=== PATIENT | male | born 1960 | race Caucasian/White ===

== ENCOUNTER 2018-02-17 06:47 | Day surgery (SDC) | payer BC ==
[~2018-02-17 06:47] MED LIST: Acetaminophen TAB* 325 MG PO PRN; Buffered Lidocaine 0.9% SYRIN* 5 ML/SYR SYRINGE INTRADERM ONE
[2018-02-17] MEDS ORDERED: Midazolam* 1 MG/ML 5 ML VIAL (5 MG) ONE (07:56)
[2018-02-17] MEDS ORDERED: fentaNYL* 50 MCG/ML 2 ML VIAL (100 MCG VIAL) ONE (08:22)
[2018-02-17 08:56] VITALS: BP 126/84
[2018-02-17] MEDS ORDERED: acetaZOLAMIDE TAB* 250 MG ONE (11:16)
[2018-02-17] MEDS ORDERED: Cyclopentolate 1% OPTH.SOL* 2 ML BTL ONE (11:16)
[2018-02-17] MEDS ORDERED: Lidocaine 1%* 5 ML VIAL ONE (11:16)
[2018-02-17] MEDS ORDERED: Neomycin/Polymy/Dex OPHTH.OIN* 3.5 GM ONE (11:16)
[2018-02-17] MEDS ORDERED: Tropicamide 1% OPTH.SOL* BTL ONE (11:16)
[2018-02-17] MEDS ORDERED: Ketorolac 0.5% OPHTH (NF) 0.5 % 5 ML BTL ONE (11:16)
[2018-02-17] MEDS ORDERED: Povidone Iodine 5% OPTH* 30 ML BTL ONE (11:16)
[2018-02-17] MEDS ORDERED: Phenylephrine 2.5% OPTH.SOL* 2 ML BTL ONE (11:16)
[2018-02-17] MEDS ORDERED: Tetracaine 0.5% OPTH.SOL 4 ML* 1 DROP BTL ONE (11:16)
--- NOTE | 2018-02-17 12:40 | OP ---
DATE OF OPERATION: 02/17/18 - [facility] DATE OF : 64 SURGEON: Wang Lunsford MD ANESTHESIA: Monitored anesthesia care. PRE-OP DIAGNOSIS: Cataract, left eye. POST-OP DIAGNOSIS: Cataract, left eye. OPERATIVE PROCEDURE: Extracapsular cataract extraction of the left eye with intraocular lens implant. IMPLANTS: SN60WF 21.0 diopter lens to the left eye. COMPLICATIONS: None. DESCRIPTION OF PROCEDURE: The patient was given phenylephrine 2.5% and cyclopentolate 1% eye drops to the operative eye in the preoperative area. The patient was taken to the operating room where a time-out was taken to identify the correct patient, site and side of surgery, and correct lens selection. The patient's left eye was prepped and draped in the usual sterile fashion with 5% Betadine. A second time-out was taken to verify the correct patient, site and side of surgery, and correct lens selection. A lid speculum was placed to the left eye. A 1-mm paracentesis blade was used to make a clear corneal incision in the inferotemporal position. Preservative-free 1% lidocaine was injected into the anterior chamber. DisCoVisc was then injected into the anterior chamber. A 2.75 mm keratome blade was used to make a triplanar incision at the superotemporal position. A cystotome initiated a capsulorrhexis which was completed with Utrata forceps in a continuous and curvilinear manner. Hydrodissection of the lens was performed with BSS on a cannula. The lens could be spun in the capsular bag. The phacoemulsification handpiece was used with a [id number] technique to remove the nucleus in its entirety with 7.49 CDE. The I/A handpiece then removed the residual cortical lens material. DisCoVisc was injected to inflate the capsular bag. The planned SN60WF 21.0 diopter lens was injected into the capsular bag. The residual DisCoVisc was removed from the eye with the I/A handpiece. 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 The corneal incisions were hydrated and no leaks occurred at physiologic pressure around 20 mmHg per palpation. The lid speculum was removed and drapes removed. Maxitrol ointment was placed to the surface of the operative eye. An adhesive patch and shield was then placed on the operative eye. The patient was taken to the postoperative area in stable condition. [id number]/[facility] #: [id number] [facility] NETWORKNoel
== END 2018-02-17 09:01 | disposition home or self-care (01) ==
LOC: OREAST 06:47
PROVIDERS: ATTEND Student in an Organized Health Care Education/Training Program
DX: H25.12 Age-related nuclear cataract, left eye (principal); H43.811 Vitreous degeneration, right eye; H33.22 Serous retinal detachment, left eye; I10 Essential (primary) hypertension; E78.00 Pure hypercholesterolemia, unspecified; J30.89 Other allergic rhinitis; J44.9 Chronic obstructive pulmonary disease, unspecified; N40.0 Benign prostatic hyperplasia without lower urinary tract symptoms; G47.33 Obstructive sleep apnea (adult) (pediatric); K21.9 Gastro-esophageal reflux disease without esophagitis; D72.829 Elevated white blood cell count, unspecified; F41.9 Anxiety disorder, unspecified
CPT/HCPCS: A9270-GY; J2250; J3010; V2632

== ENCOUNTER 2018-02-26 14:12 | Emergency (ER) | payer BC ==
--- OUTSIDE RECORDS SUMMARY | 2018-02-26 14:34 | XMS REPORT ---
:1960 External Reference #:[id number] Author Organization [facility] [place] Address [address] [place] [id number] Phone [phone] Care Team Providers Name Role Phone Grabiel Conroy M.D. Primary Care Physician Unavailable Payers Type Date Identification Numbers Payment Provider Subscriber Commercial Policy Number: [id number] BS CNY Bladeus Ross Valerio PayID: [id number] [address] [address] [place] [address] Problems Date Description Provider Status Onset: Essential hypertension Active Onset: Hypercholesterolemia Active Onset: Multiple environmental allergies Active Onset: Benign localized hyperplasia of Active prostate Onset: Fatigue Active Onset: Mild chronic obstructive pulmonary Active disease Onset: 04/04/2017 Crystalline deposits in vitreous Wang Lunsford M.D. Active Onset: 04/04/2017 Nuclear senile cataract Wang Lunsford M.D. Active Onset: 04/04/2017 Central serous chorioretinopathy Wang Lunsford M.D. Active Onset: 02/05/2018 Vitreous degeneration Wang Lunsford M.D. Active Onset: 10/15/2017 Serous retinal detachment Wang Lunsford M.D. Active Family History Date Family Member(s) Problem(s) Comments General No Current Problems Father Heart Disease Father Pacemaker Father Hypercholesterolemia Father Hypertension Father Enlarged Prostate Father Gout Father Glaucoma Father Cataract Mother Breast Cancer Mother Ovarian Cancer Mother Diabetes Mellitus Type 2 Mother Heart Disease Mother Parkinson's Disease Mother Cataract Social History Type Date Description Comments Marital Status Single Occupation [employer] Work Status Full-Time Employment ETOH Use Occasionally consumes alcohol Smoking Patient has never smoked Recreational Drug Use Denies Drug Use Daily Caffeine Consumes on average 1 cup of regular coffee per day Allergies, Adverse Reactions, Alerts Date Description Reaction Status Severity Comments 04/04/2017 Penicillin active 04/04/2017 Sulfa Antibiotics active 02/05/2018 Bee Stings active Medications Medication Date Status Form Strength Qnty SIG Indications Ordering Provider Ciprofloxacin HCL 02/05 Active Solution 0.3% 10uni instill Wang /2017 ts one drop Zablocki, in the M.D. left eye three times a day, start the day before surgery Ketorolac 02/05 Active Solution 0.5% 10ml use one Wang Tromethamine /2017 drop in Zablocki, the left M.D. eye three times a day, start the day before surgery Prednisolone 02/05 Active Suspension 1% 15ml 1 drops Wang Acetate /2017 left eye Zablocki, three M.D. times a day. taper as directed Timolol Maleate 02/04 Active Solution 0.5% 15ml use 1 Wang (Daily) drop in Zablocki, your left M.D. eye twice daily Spiriva Active Capsules 18mcg Tamra, Handihaler /0000 Lucinda F.N.P Tamsulosin HCL Active Capsules 0.4mg Take 1 Unknown /0000 Capsule By Mouth Daily. Pravastatin 00/00 Active Tablets 10mg Take 1 Unknown Sodium /0000 Tablet Every Day Nisoldipine ER 00 Active Tablets ER 17mg Take One Unknown /0000 24HR Tablet By Mouth One Time Daily Montelukast 00/00 Active Tablets 10mg Take 1 Unknown Sodium /0000 Tablet By Mouth Every Day Lisinopril 00/00 Active Tablets 5mg Take 1 Unknown /0000 Tablet Every Day Bupropion HCL ER 0000 Active Tablets ER 150mg Take Unknown (XL) /0000 24HR Three Tablets By Mouth Daily Viagra 00/00 Active Tablets 50mg Unknown /0000 Levocetirizine 00/00 Active Tablets 5mg Take 1 Unknown Dihydrochloride /0000 Tablet Every Day Results Description No Information Procedures Date CPT Code Description Status 01/16/2018 60792 Est Patient Comprehensive Exam Completed 10/15/2017 94410 Scanning Computerized Opthalmic Diagnostic Posterior Completed Seg Retina 10/15/2017 28846 Est Patient Comprehensive Exam Completed 04/04/2017 89438 Scanning Computerized Opthalmic Diagnostic Posterior Completed Seg Retina 04/04/2017 28819 New Patient Comprehensive Exam Completed Plan of Care Future Appointment(s):03/04/2018 8:30 am - Wang Lunsford M.D. at [facility], 02/18/2018 8:30 am - Wang Lunsford M.D. at [facility] , 02/17/2018 1:00 pm - Wang Lunsford M.D. at [facility], 2017 - Wang Lunsford M.D.H25.12 Age-related nuclear cataract, left eyeComments:Smoking can increase the risk of developing or worsening any eye related disease, as well as affect your overall health. If you are a smoker, we strongly recommend that you quit.If you are not a smoker, we strongly recommend that you do not start. Dense cataract in the left eye.Follow up:For surgery. Please keep post op appointments as scheduled.H43.811 Vitreous degeneration, right eyeH33.22 Serous retinal detachment, left eyeH25.11 Age- related nuclear cataract, right eye
--- OUTSIDE RECORDS SUMMARY | 2018-02-26 14:34 | XMS REPORT ---
:1960 External Reference #:[id number] Author Organization [facility] Address [address] [place] [id number] Phone [phone] Care Team Providers Name Role Phone Grabiel Conroy M.D. Primary Care Physician Unavailable Payers Type Date Identification Numbers Payment Provider Subscriber Commercial Policy Number: [id number] BS CNY Bladeus Ross Valerio PayID: [id number] [address] [address] [place] [address] Problems Date Description Provider Status Onset: Essential [...] Date Description Comments Marital Status Single Occupation [employer] Work Status Full-Time Employment ETOH Use Occasionally [...] Tablet By Mouth One Time Daily Montelukast 00 Active Tablets 10mg Take 1 Unknown Sodium /0000 Tablet By Mouth Every Day Lisinopril 00/00 Active Tablets 5mg Take 1 Unknown /0000 Tablet Every Day Bupropion HCL ER 0000 Active Tablets ER 150mg Take Unknown (XL) /0000 24HR Three Tablets By Mouth Daily Viagra 00 Active Tablets 50mg Unknown /0000 Levocetirizine 00/00 Active Tablets 5mg Take 1 Unknown Dihydrochloride /0000 Tablet Every Day Results Description No Information Procedures Date CPT Code Description Status 02/05/2018 16055 Ophthalmic Biometry Completed 02/05/2018 54026 Ophthalmic Biometry Completed 02/05/2018 82808 Scanning Computerized Opthalmic Diagnostic Posterior Completed Seg Retina 01/16/2018 92503 Est Patient Comprehensive Exam Completed 10/15/2017 95789 Scanning Computerized Opthalmic Diagnostic Posterior Completed Seg Retina 10/15/2017 31204 Est Patient Comprehensive Exam Completed 04/04/2017 62341 Scanning Computerized Opthalmic Diagnostic Posterior Completed Seg Retina 04/04/2017 09491 New Patient Comprehensive Exam Completed Encounters Type Date Location Provider CPT E/M Dx Office Visit 02/05/2018 8:30a [facility], Wang Lunsford, [address] H25.12 Kathy H43.811 H33.22 H25.11 Plan of Care Future Appointment(s):03/04/2018 8:30 am - Wang Lunsford M.D. at [facility], 02/18/2018 - Wang Lunsford M.D.Z96.1 Presence of intraocular lensComments:Smoking can increase the risk of developing or worsening any eye related disease, as well as affect your overall health. If you are a smoker, we strongly recommend that you quit.If you are not a smoker, we strongly recommend that you do not start. The artifical lens implant in your left eye appears to be stable. Since this is the first day after surgery, your left eye is still dilated and the vision will still be slightly blurry. The dilation will go down over the next day or two. Continue taking your eye drops as directed on the surgical calendar. If you have any questions, please call our office.Follow up:As scheduled You can expect to have your eyes dilated at your next visit. If Dr. Lunsford orders any additional testing, it may require extra time. We recommend that you bring sunglasses, as dilation drops often make you light sensitive until they wear off. We always recommend you bring someone to drive you home if you are uncomfortable driving with your eyes dilated. If you have any questions before your next visit, feel free to call our office at .
[2018-02-26] MEDS ORDERED: Albuterol/Ipratropium NEB.SOL* Albuterol 2.5 MG/Ipratropium 0.5 MG 3 ML INH ONE (15:24)
[2018-02-26] MEDS ORDERED: NS 0.9% 1000 ML* 1,000 ML IV SCH (15:30)
[2018-02-26 16:16] LABS: ABS Basophils 0.1 10^3/ul (0-0.2); ABS Eosinophils 0.1 10^3/ul (0-0.6); ABS Lymphocytes 3.4 10^3/ul (1.0-4.8); ABS Monocytes 1.1 10^3/ul (0-0.8); ABS Neutrophils 11.3 10^3/ul (1.5-7.7); ABS Nucleated RBC 0 10^3/ul; Eosinophil % 0.4 % (0-6); Hematocrit 46 % (42-52); Hemoglobin 16.1 g/dl (14.0-18.0); Lymphocyte % 21.6 % (25-47); Mean Corpuscular HGB Conc 35 g/dl (31-36); Mean Corpuscular Hemoglobin 31 pg (27-31); Mean Corpuscular Volume 89 fL (80-94); Mean Platelet Volume 8.2 um3 (7.4-10.4); Nucleated Red Blood Cells % 0.1; Platelet Count 232 10^3/ul (150-450); Red Blood Count 5.18 10^6/ul (4.00-5.40); Red Cell Distribution Width 13 % (10.5-15); White Blood Count 15.9 10^3/ul (3.5-10.8)
[2018-02-26 16:28] LABS: INR 0.95 (0.77-1.02)
[2018-02-26 16:57] LABS: EGFR Non-African American 66.7 (>60)
--- NOTE | 2018-02-26 17:11 | RAD ---
INDICATION: Shortness of breath. COMPARISON: Comparison is made with a prior chest x-ray study from November 12, 2013. TECHNIQUE: A portable view of the chest was obtained. FINDINGS: Cardiac and mediastinal contours appear to be within normal limits. The lungs are clear. No pleural effusion is seen. IMPRESSION: NO EVIDENCE FOR ACUTE DISEASE.
[2018-02-26] MEDS ORDERED: Azithromycin TAB* 250 MG PO ONE (17:52)
[2018-02-26 18:16] VITALS: BP 148/94
--- NOTE | 2018-02-26 18:46 | ED ---
Katie Nj Tenzin, scribed for Yaw Carrillo MD on 02/26/18 at 1524 . Shortness of Breath - HPI Summary HPI Summary: Pt is a 57 years old male with PMHx of COPD and asthma presenting to the ED complaining of SOB with deep breaths today. His doctor recommended him to visit the ED today. Pt notes that "I really have to concentrate when I take deep breaths" and the pain radiating to the periumbilical is sharp as if a metal piece is piercing through it. Pt is also complaining of general malaise, little wheezes with coughs for over a week. He reports that his coughs were productive with yellow sputum last week but currently with no sputum. Pt denies fever or chills. No aggravating or alleviating factors were noted. He currently has a CPAP machine at home. He reports that he used his inhaler this morning at 10: 00. Pt has prostate cancer and he can't be on any oral steroids. - History of Current Complaint Chief Complaint: EDWeakness Time Seen by Provider: 02/26/18 15:03 Hx Obtained From: Patient Onset/Duration: Still Present Associated Signs & Symptoms: Cough (Nonproductive) - cough was productive with yellow sputum last week., Wheezing - Allergy/Home Medications Allergies/Adverse Reactions: Allergies Allergy/AdvReac Type Severity Reaction Status Date / Time bee venom protein (honey bee) Allergy Severe Hives Verified 02/17/18 07:16 Penicillins Allergy Severe Hives Verified 02/17/18 07:16 Sulfa (Sulfonamide Allergy Severe See Comment Verified 02/17/18 07:16 Antibiotics) Home Medications: Home Medications Aspirin EC TAB* [Ecotrin EC Low Dose 81 MG*] 81 mg PO DAILY 02/26/18 [History Confirmed 02/26/18] B1/B2/Niacin/B12/Protease [B-Complex/B-12] 1 tab PO DAILY 02/26/18 [History Confirmed 02/26/18] Bupropion XL* [Wellbutrin XL *] 450 mg PO DAILY 02/26/18 [History Confirmed ] Chlorhexidine MOUTHWASH 0.12%* [Peridex Mouth Wash 0.12%*] 15 ml SWISH SPIT BID 02/26/18 [History Confirmed 02/26/18] EPINEPHrine [Epipen 2-Tim] 0.3 mg IM ONCE PRN 02/26/18 [History Confirmed ] Mv-Mins/Folic Acid/Guarana/Caf [One Daily Tablet] 1 tab PO DAILY 02/26/18 [ History Confirmed 02/26/18] Rizatriptan ODT (NF) [Maxalt-ANIMAL BEHAVIORIST (NF)] 10 mg PO DAILY PRN 02/26/18 [History Confirmed 02/26/18] Tamsulosin CAP* [Flomax CAP*] 0.4 mg PO DAILY 02/26/18 [History Confirmed ] PMH/Surg Hx/FS Hx/Imm Hx Endocrine/Hematology History: Denies: Hx Diabetes, Hx Anemia - chronic high WBC r/t sleep apnea- sees Dr. Douglas yearly Cardiovascular History: Reports: Hx Hypertension, Other Cardiovascular Problems/ Disorders - high cholesterol Respiratory History: Reports: Hx Asthma - POSSIBLE ASTHMA, Hx Sleep Apnea GI History: Reports: Hx Gastroesophageal Reflux Disease History: Reports: Other Problems/Disorders - borderline PSA- being monitorted Denies: Hx Renal Disease Sensory History: Reports: Hx Cataracts - left, Hx Contacts or Glasses - glasses Denies: Hx Hearing Aid Opthamlomology History: Reports: Hx Cataracts - left, Hx Contacts or Glasses - glasses Neurological History: Reports: Hx Migraine Psychiatric History: Reports: Hx Anxiety - Cancer History Cancer Type, Location and Year: PROSTATE Hx Chemotherapy: No - Surgical History Surgery Procedure, Year, and Place: radical retina reattachment 10/22/2017 Hx Anesthesia Reactions: Yes - when extubated, choked for 5 minutes, has sleep apnea Infectious Disease History: No Infectious Disease History: Denies: Traveled Outside the [place] in Last 30 Days - Family History Known Family History: Positive: Other - Social History Alcohol Use: None Substance Use Type: Reports: None Smoking Status (MU): Never Smoked Tobacco Review of Systems Negative: Fever, Chills Positive: Shortness Of Breath, Cough Positive: Abdominal Pain - with deep breaths All Other Systems Reviewed And Are Negative: Yes Physical Exam - Summary Physical Exam Summary: General: well-appearing, no pain distress Skin: warm, color reflects adequate perfusion, dry Head: normal Eyes: EOMI, BERNABE ENT: normal Neck: supple, nontender Respiratory: Rhonchi bilaterally, breath sounds present Cardiovascular: RRR Abdomen: soft, nontender Bowel: present Musculoskeletal: normal, strength/ROM intact Neurological: sensory/motor intact, A&O x3 Psychological: affect/mood appropriate Triage Information Reviewed: Yes Vital Signs On Initial Exam: Initial Vitals Temp Pulse Resp BP Pulse Ox 97.0 F 79 14 165/95 96 02/26/18 14:15 02/26/18 14:15 02/26/18 14:15 02/26/18 14:15 02/26/18 14:15 Vital Signs Reviewed: Yes Diagnostics - Vital Signs Vital Signs Temp Pulse Resp BP Pulse Ox 02/26/18 14:15 97.0 F 79 14 165/95 96 - Laboratory Lab Results: Lab Results 02/26/18 02/26/18 02/26/18 Range/Units 15:59 15:59 15:59 WBC 15.9 H (3.5-10.8) 10^3/ul RBC 5.18 (4.00-5.40) 10^6/ul Hgb 16.1 (14.0-18.0) g/dl Hct 46 (42-52) % MCV 89 (80-94) fL MCH 31 (27-31) pg MCHC 35 (31-36) g/dl RDW 13 (10.5-15) % Plt Count 232 (150-450) 10^3/ul MPV 8.2 (7.4-10.4) um3 Neut % (Auto) 70.9 (38-83) % Lymph % (Auto) 21.6 L (25-47) % Wood % (Auto) 6.7 (0-7) % Eos % (Auto) 0.4 (0-6) % Baso % (Auto) 0.4 (0-2) % Absolute Neuts (auto) 11.3 H (1.5-7.7) 10^3/ul Absolute Lymphs (auto) 3.4 (1.0-4.8) 10^3/ul Absolute Monos (auto) 1.1 H (0-0.8) 10^3/ul Absolute Eos (auto) 0.1 (0-0.6) 10^3/ul Absolute Basos (auto) 0.1 (0-0.2) 10^3/ul Absolute Nucleated RBC 0 10^3/ul Nucleated RBC % 0.1 INR (Anticoag Therapy) 0.95 (0.77-1.02) APTT 33.5 (26.0-36.3) seconds D-Dimer, Quantitative < 200 (Less Than 230) ng/mL Sodium 137 L (139-145) mmol/L Potassium 3.5 (3.5-5.0) mmol/L Chloride 101 (101-111) mmol/L Carbon Dioxide 24 (22-32) mmol/L Anion Gap 12 H (2-11) mmol/L BUN 18 (6-24) mg/dL Creatinine 1.14 (0.67-1.17) mg/dL Est GFR ( Amer) 85.8 (>60) Est GFR (Non-Af Amer) 66.7 (>60) BUN/Creatinine Ratio 15.8 (8-20) Glucose 111 H (70-100) mg/dL Lactic Acid (0.5-2.0) mmol/L Calcium 9.9 (8.6-10.3) mg/dL Magnesium 2.0 (1.9-2.7) mg/dL Total Bilirubin 0.50 (0.2-1.0) mg/dL AST 23 (13-39) U/L ALT 43 (7-52) U/L Alkaline Phosphatase 65 (34-104) U/L Total Creatine Kinase 92 (10-223) U/L CK-MB (CK-2) 1.3 (0.6-6.3) ng/mL Troponin I 0.00 (<0.04) ng/mL C-Reactive Protein 6.57 H (< 5.00) mg/L B-Natriuretic Peptide ( - 100) pg/mL Total Protein 7.8 (6.4-8.9) g/dL Albumin 4.4 (3.2-5.2) g/dL Globulin 3.4 (2-4) g/dL Albumin/Globulin Ratio 1.3 (1-3) TSH 1.83 (0.34-5.60) mcIU/mL 02/26/18 02/26/18 Range/Units 15:59 15:59 WBC (3.5-10.8) 10^3/ul RBC (4.00-5.40) 10^6/ul Hgb (14.0-18.0) g/dl Hct (42-52) % MCV (80-94) fL MCH (27-31) pg MCHC (31-36) g/dl RDW (10.5-15) % Plt Count (150-450) 10^3/ul MPV (7.4-10.4) um3 Neut % (Auto) (38-83) % Lymph % (Auto) (25-47) % Wood % (Auto) (0-7) % Eos % (Auto) (0-6) % Baso % (Auto) (0-2) % Absolute Neuts (auto) (1.5-7.7) 10^3/ul Absolute Lymphs (auto) (1.0-4.8) 10^3/ul Absolute Monos (auto) (0-0.8) 10^3/ul Absolute Eos (auto) (0-0.6) 10^3/ul Absolute Basos (auto) (0-0.2) 10^3/ul Absolute Nucleated RBC 10^3/ul Nucleated RBC % INR (Anticoag Therapy) (0.77-1.02) APTT (26.0-36.3) seconds D-Dimer, Quantitative (Less Than 230) ng/mL Sodium (139-145) mmol/L Potassium (3.5-5.0) mmol/L Chloride (101-111) mmol/L Carbon Dioxide (22-32) mmol/L Anion Gap (2-11) mmol/L BUN (6-24) mg/dL Creatinine (0.67-1.17) mg/dL Est GFR ( Amer) (>60) Est GFR (Non-Af Amer) (>60) BUN/Creatinine Ratio (8-20) Glucose (70-100) mg/dL Lactic Acid 2.4 H* (0.5-2.0) mmol/L Calcium (8.6-10.3) mg/dL Magnesium (1.9-2.7) mg/dL Total Bilirubin (0.2-1.0) mg/dL AST (13-39) U/L ALT (7-52) U/L Alkaline Phosphatase (34-104) U/L Total Creatine Kinase (10-223) U/L CK-MB (CK-2) (0.6-6.3) ng/mL Troponin I (<0.04) ng/mL C-Reactive Protein (< 5.00) mg/L B-Natriuretic Peptide 6 ( - 100) pg/mL Total Protein (6.4-8.9) g/dL Albumin (3.2-5.2) g/dL Globulin (2-4) g/dL Albumin/Globulin Ratio (1-3) TSH (0.34-5.60) mcIU/mL Result Diagrams: 02/26/18 15:59 02/26/18 15:59 Lab Statement: Any lab studies that have been ordered have been reviewed, and results considered in the medical decision making process. - CT CHEST XRAY CT Interpretation Completed By: Radiologist - IMPRESSION: NO EVIDENCE FOR ACUTE DISEASE. Dr. Carrillo reviewed his report. - EKG 15:30 Cardiac Rate: NL - [address] Segment: Normal Ectopy: None Course/Dx - Course Course Of Treatment: DISCUSSED RESULTS WITH THE PATIENT. TROPONIN IS 6 HOURS AFTER ONSET OF LOWER CHEST/UPPER ABD TIGHTNESS. SX IMPROVED WITH DUONEB IN ED. PATIENT REPORTS HE HAS BEEN TOLD BY HIS ONCOLOGIST TO AVOID STEROIDS THEREFORE , NO STEROID RX. WE DISCUSSED REPEAT TROPONIN IN ED AND ADMISSION; THE PATIENT DECLINED. F/U PMD; RETURN TO ED IF WORSE. - Diagnoses Provider Diagnoses: Bronchitis with bronchospasm Discharge - Sign-Out/Discharge Documenting (check all that apply): Discharge/Admit/Transfer - Discharge - Discharge Plan Condition: Stable Disposition: HOME Prescriptions: Albuterol HFA INHALER* [Ventolin HFA Inhaler*] 2 puff INH Q4H PRN #1 mdi PRN Reason: Wheezing Azithromycin TAB* [Zithromax TAB (Z-TIM) 250 mg #6 tabs] 250 mg PO DAILY #4 tab Patient Education Materials: Acute Bronchitis (ED), Bronchospasm (ED) Referrals: Grabiel Conroy MD [Primary Care Provider] - Additional Instructions: FOLLOW UP WITH YOUR DOCTOR. USE YOUR ALBUTEROL INHALER, 2 PUFFS EVERY 4 HOURS, NEEDED. RETURN TO THE EMERGENCY DEPARTMENT FOR ANY WORSENING OF YOUR CONDITION; CHEST PAIN, SHORTNESS OF BREATH, YOU FEEL ILL OR QUESTIONS OR CONCERNS. - Billing Disposition and Condition Condition: STABLE Disposition: Home The documentation as recorded by the Katie barrera Tenzin accurately reflects the service I personally performed and the decisions made by me, Yaw Carrillo MD.
== END 2018-02-26 18:35 | disposition home or self-care (01) ==
LOC: ED 14:12
DX: J40 Bronchitis, not specified as acute or chronic (principal); R05 Cough; R06.2 Wheezing; R06.02 Shortness of breath
CPT/HCPCS: 36415; 71045; 80053; 82550; 82553; 83605; 83735; 83880; 84443; 84484; 85025; 85379; 85610; 85730; 86140; 87040; 93005; 96360; 99284; A9270-GY

== ENCOUNTER 2018-02-28 07:03 | Emergency (ER) | payer BC ==
--- NOTE | 2018-02-28 07:29 | UC ---
Shoulder Pain HPI - HPI Summary HPI Summary: Patient presents with 2 weeks of worsening right shoulder pain and decreased range of motion. Initially patient thought it was his old rotator cuff injury acting up however for the past 2 days it has become extremely painful and he has difficulty moving at his shoulder at all. He denies any recent trauma or injury. No history of surgery on the shoulder. - History of Current Complaint Chief Complaint: UCUpperExtremity Stated Complaint: SHOULDER PAIN Time Seen by Provider: 02/28/18 07:18 Hx Obtained From: Patient Onset/Duration: Gradual Onset, Lasting Weeks, Still Present Timing: Constant Severity Initially: Moderate Severity Currently: Moderate Location Of Pain: Is Discrete @ - right shoulder Pain Intensity: 5 Pain Scale Used: 0-10 Numeric Character: Aching, Stiffness Aggravating Factor(s): Movement Alleviating Factor(s): Rest Related History: Dominant Hand Right - Allergies/Home Medications Allergies/Adverse Reactions: Allergies Allergy/AdvReac Type Severity Reaction Status Date / Time bee venom protein (honey bee) Allergy Severe Hives Verified 02/28/18 07:09 Penicillins Allergy Severe Hives Verified 02/28/18 07:09 Sulfa (Sulfonamide Allergy Severe See Comment Verified 02/28/18 07:09 Antibiotics) Home Medications: Home Medications Acetaminophen [Acetaminophen Extra Strength] 1 - 2 tab PO Q8HR PRN 02/28/18 [ History Confirmed 02/28/18] PMH/Surg Hx/FS Hx/Imm Hx Cardiovascular History: Hypertension Respiratory History: COPD, Asthma Cancer History: Prostate Cancer - Surgical History Surgical History: Yes Surgery Procedure, Year, and Place: radical retina reattachment 10/22/2017 - Family History Known Family History: Positive: Other - Social History Alcohol Use: Occasionally Alcohol Amount: Socially Substance Use Type: None Smoking Status (MU): Never Smoked Tobacco Review of Systems Constitutional: Negative Skin: Negative Respiratory: Negative Cardiovascular: Negative Gastrointestinal: Negative Musculoskeletal: Arthralgia, Decreased ROM All Other Systems Reviewed And Are Negative: Yes Physical Exam Triage Information Reviewed: Yes Appearance: Well-Appearing, No Pain Distress, Well-Nourished Vital Signs: Initial Vital Signs Temp 96.6 F 02/28/18 07:13 Pulse 67 02/28/18 07:13 Resp 18 02/28/18 07:13 BP 151/96 02/28/18 07:13 Pulse Ox 96 02/28/18 07:13 Vital Signs Reviewed: Yes Eyes: Positive: Conjunctiva Clear ENT: Positive: Hearing grossly normal Neck: Positive: Supple Respiratory: Positive: No respiratory distress, No accessory muscle use Cardiovascular: Positive: Pulses Normal Abdomen Description: Positive: Soft Musculoskeletal: Positive: No Edema, ROM Limited @ - right shoulder to both active and passive motion Neurological: Positive: Alert Psychological: Positive: Age Appropriate Behavior Skin: Negative: rashes Diagnostics - Radiology RIGHT SHOULDER XRAY Xray Interpretation: Positive (See Comments) - CALCIFIC TENDINOPATHY Radiology Interpretation Completed By: Radiologist Shoulder Course/Dx - Differential Dx/Diagnosis Provider Diagnoses: CALCIFIC TENDINOPATHY RIGHT SHOULDER Discharge - Sign-Out/Discharge Documenting (check all that apply): Discharge/Admit/Transfer - Discharge Plan Condition: Stable Disposition: HOME Patient Education Materials: Calcific Tendinitis (ED) Referrals: Johnie Sorto [Medical Doctor] - 1 Week Grabiel Conroy MD [Primary Care Provider] - If Needed Hwaa Frye MD [Medical Doctor] - 1 Week Additional Instructions: CALCIFIC TENDINITIS/TENDINOSIS YOUR XRAY SHOWS A CALCIUM DEPOSIT IN THE TENDONS OF YOUR SHOULDER. THIS COULD BE CONTRIBUTING TO YOUR SYMPTOMS. SUCCESSFUL MANAGEMENT OFTEN CONSISTS OF MEDICATION, A SLING AND PHYSICAL THERAPY. OCCASIONALLY INJECTIONS MAY BE INDICATED. IN RARE CASES SURGERY MAY BE CONSIDERED. The onset of symptoms is usually spontaneous and is associated with the rapid development of excruciating shoulder pain and inability to sleep. The patient is exceedingly tender to palpation and has extreme pain with any attempted motion of the shoulder. There may be warmth and fullness. Elbow and hand motion are normal and circulation/neurologic examination is intact. FOLLOW-UP WITH ORTHO OR SPORTS MED FOR FURTHER EVALUATION AND MANAGEMENT. WEAR THE SLING NEEDED FOR DISCOMFORT. REFERRAL FOR PT PROVIDED TODAY. IBUPROFEN MAX DOSE: 600MG (3 TABS) EVERY 6 HRS OR 800MG (4 TABS) EVERY 8 HRS OR NAPROXEN MAX DOSE: 440MG (2 TABS) EVERY 12 HRS TYLENOL MAX DOSE: 1000MG (2 EXTRA STRENGTH TABS) EVERY 8 HRS OR 650MG (2 REGULAR TABS) EVERY 6 HRS - Billing Disposition and Condition Condition: STABLE Disposition: Home
--- NOTE | 2018-02-28 07:59 | RAD ---
Indication: RIGHT shoulder pain increasing over the past 2 weeks without preceding injury. Rotator cuff surgery 10 years ago. History of prostate carcinoma. Comparison: November 26, 2017 bone scan. Technique: Internal rotation AP, external rotation Grashey, scapular Y, axillary views RIGHT shoulder Report: Negative for fracture or suspicious focal osseous lesions. Normal acromioclavicular and glenohumeral joint alignment. Unremarkable acromioclavicular joint. Preserved glenohumeral joint space. Large burden of calcific tendinopathy at the level of the supraspinatus tendon. Unremarkable soft tissue contours. IMPRESSION: Calcific tendinopathy of the rotator cuff.
[2018-02-28 08:46] VITALS: BP 146/91
== END 2018-02-28 08:45 | disposition home or self-care (01) ==
LOC: UCEAST 07:03
DX: M75.31 Calcific tendinitis of right shoulder (principal); I10 Essential (primary) hypertension; J44.9 Chronic obstructive pulmonary disease, unspecified; Z85.46 Personal history of malignant neoplasm of prostate; Z88.0 Allergy status to penicillin; Z88.2 Allergy status to sulfonamides; Z91.030 Bee allergy status
CPT/HCPCS: 99213; G0463

== ENCOUNTER 2019-08-20 15:39 | Emergency (ER) | payer BC ==
--- OUTSIDE RECORDS SUMMARY | 2019-08-20 15:56 | XMS REPORT | Continuity of Care Document ---
:1960 External Reference #:[id number] Author Name Wang Lunsford M.D. Address [address] [place] [id number] Care Team Providers Name Role Phone Grabiel Conroy M.D. - Internal Care Team Information Director Of Fundraising Medicine Problems Active Problems Provider Date Essential hypertension Onset: Hypercholesterolemia Onset: Multiple environmental allergies Onset: Benign localized hyperplasia of prostate Onset: Fatigue Onset: Mild chronic obstructive pulmonary disease Onset: Crystalline deposits in vitreous Wang Lunsford M.D. Onset: 04/04/2017 Nuclear senile cataract Wang Lunsford M.D. Onset: 04/04/2017 Central serous chorioretinopathy Wang Lunsford M.D. Onset: 04/04/2017 Serous retinal detachment Wang Lunsford M.D. Onset: 10/15/2017 Vitreous degeneration Wang Lunsford M.D. Onset: 02/05/2018 Ocular hypertension Wang Lunsford M.D. Onset: 03/04/2018 Presence of intraocular lens Wang Lunsford M.D. Onset: 03/04/2018 Social History Type Date Description Comments Sex Unknown ETOH Use Occasionally consumes alcohol Tobacco Use Start: Unknown Patient has never smoked Recreational Drug Use Denies Drug Use Smoking Status Reviewed: 08/18/19 Patient has never smoked Allergies, Adverse Reactions, Alerts Active Allergies Reaction Severity Comments Date Penicillin 04/04/2017 Sulfa Antibiotics 04/04/2017 Bee Stings 02/05/2018 Medications Active Medications SIG Qnty Indications Ordering Provider Date Spiriva HandLucinda Roper F.N.P 18mcg Capsules Tamsulosin HCL Take 1 Capsule By Unknown 0.4mg Mouth Daily. Capsules Pravastatin Sodium Take 1 Tablet Unknown 10mg Every Day Tablets Nisoldipine ER Take One Tablet Unknown 17mg By Mouth One Time Tablets ER 24HR Daily Montelukast Sodium Take 1 Tablet By Unknown 10mg Mouth Every Day Tablets Bupropion HCL ER (XL) Take Three Unknown Tablets By Mouth 150mg Tablets ER 24HR Daily Viagra Unknown 50mg Tablets Irbesartan Unknown 75mg Tablets Immunizations Description No Information Available Vital Signs Description No Information Available Results Description No Information Available Procedures Date Code Description Status 08/12/2019 58179 Patient No Show For Appt Completed 07/09/2019 84326 Patient No Show For Appt Completed Medical Devices Description No Information Available Encounters Description No Information Available Assessments Date Code Description Provider 08/18/2019 H40.052 Ocular hypertension, left eye Wang Lunsford M.D. 08/18/2019 H25.11 Age-related nuclear cataract, right eye Wang Lunsford M.D. Plan of Treatment 08/18/2019 - Wang Lunsford M.D.H40.052 Ocular hypertension, left eyeComments :Smoking can increase the risk of developing or worsening any eye related disease, as well as affect your overall health. If you are a smoker, we strongly recommend that you quit.If you are not a smoker, we strongly recommend that you do not start. You have Ocular Hypertension in your left eye. Thismeans that your eye pressure is higher than average, but you have not been diagnosed with Glaucoma.Follow up:6 Month Follow Up DFE You can expect to have your eyes [...] feel free to call our office at .H25.11 Age-related nuclear cataract, right eyeComments:You have been diagnosed with a cataract in the right eye. If you are happy with your vision as it is, we will see you at your next scheduled appointment. If you feel like your vision is getting worse before your scheduled appointment, please call [facility] at [phone]. Functional Status Description No Information Available Mental Status Description No Information Available Referrals Description No Information Available
[2019-08-20 17:36] LABS: ABS Eosinophils 0.1 10^3/ul (0-0.6); ABS Lymphocytes 3.6 10^3/ul (1.0-4.8); ABS Monocytes 0.9 10^3/ul (0-0.8); ABS Neutrophils 8.1 10^3/ul (1.5-7.7); Eosinophil % 1.1 %; Hematocrit 46 % (42-52); Hemoglobin 15.9 g/dL (14.0-18.0); Lymphocyte % 28.2 %; Mean Corpuscular HGB Conc 35 g/dL (31-36); Mean Corpuscular Hemoglobin 31 pg (27-31); Mean Corpuscular Volume 90 fL (80-94); Nucleated Red Blood Cells % 0.1; Platelet Count 234 10^3/uL (150-450); Red Blood Count 5.04 10^6 /uL (4.18-5.48); Red Cell Distribution Width 14 % (10-15); White Blood Count 12.8 10^3/uL (3.5-10.8)
[2019-08-20] MEDS ORDERED: Magnesium Sulfate 2 GM IV* 2 GM/50 ML BAG IVPB ONE (17:57)
[2019-08-20] MEDS ORDERED: Metoclopramide IV* 5 MG/ML 2 ML VIAL IV SLOW PU ONE (17:58)
[2019-08-20] MEDS ORDERED: NS 0.9% 1000 ML** 1,000 ML IV ONE (17:58)
[2019-08-20] MEDS ORDERED: diPHENhydraMINE IV* 50 MG/ML 1 ml VIAL (BENADRYL) IV ONE (17:59)
[2019-08-20] MEDS ORDERED: Losartan TAB* 25 MG PO ONE (18:01)
[2019-08-20] MEDS ORDERED: niCARdipine CAP* 30 MG PO ONE (18:01)
[2019-08-20 18:06] LABS: Albumin 4.5 g/dL (3.2-5.2); Albumin/Globulin Ratio 1.4 (1-3); BUN/Creatinine Ratio 17.6 (8-20); Calcium 9.8 mg/dL (8.6-10.3); EGFR African American 103.9 (>60); EGFR Non-African American 85.9 (>60); Globulin 3.3 g/dL (2-4); Magnesium 2.2 mg/dL (1.9-2.7); Potassium 3.9 mmol/L (3.5-5.0); Total Bilirubin 0.5 mg/dL (0.2-1.0); Total Protein 7.8 g/dL (6.4-8.9)
--- NOTE | 2019-08-20 18:06 | ED ---
Headache - HPI Summary HPI Summary: 59-year-old male with significant past medical history of COPD, asthma , hypertension, migraine headaches presents to the emergency department today complaining of high blood pressure and headache which began this morning. He states he woke up with a 5 out of 10 frontal headache which he describes as a "constant pressure" with associated dizziness. He states this headache is not like his usual migraine headaches and he states he has not had a migraine in over a year. He states he was at a nurse visit this afternoon and his blood pressure was rather high so they sent him to the emergency department for evaluation. His blood pressure in the emergency room is 170/100 mmHg. He denies taking his blood pressure medication yet today as he takes them at night. He endorses recent stress but denies any recent illnesses or trauma. He endorses a family history of polycystic kidney disease but denies any family history of cerebral hemorrhage or SAH. She denies chest pain, abdominal pain, shortness of breath, neck pain, rash, visual changes, difficulty with regulation , pain in urination, alcohol use, smoking, recreational drug use. Patient denies this is "the worst headache of my life". - History Of Current Complaint Chief Complaint: EDHypertension Stated Complaint: HIGH BP,DIZZY PER PT Time Seen by Provider: 08/20/19 17:41 Hx Obtained From: Patient Onset/Duration: Gradual Onset Initially Headache Was: Moderate Currently Pain Is: Moderate Timing: Constant Character: Dull, Throbbing Location of Headache: Frontal Aggravating Factor: Nothing Allevating Factors: Medication Associated Signs And Symptoms: Dizziness Related History: Similar Episode/DX As: - Migraine history - Allergies/Home Medications Allergies/Adverse Reactions: Allergies Allergy/AdvReac Type Severity Reaction Status Date / Time bee venom protein (honey bee) Allergy Severe Hives Verified 02/28/18 07:09 Penicillins Allergy Severe Hives Verified 02/28/18 07:09 Sulfa (Sulfonamide Allergy Severe See Comment Verified 02/28/18 07:09 Antibiotics) PMH/Surg Hx/FS Hx/Imm Hx Endocrine/Hematology History: Denies: Hx Diabetes, Hx Anemia - chronic high WBC r/t sleep apnea- sees Dr. Douglas yearly Cardiovascular History: Reports: Hx Hypertension, Other Cardiovascular Problems/ Disorders - high cholesterol Respiratory History: Reports: Hx Asthma - POSSIBLE ASTHMA, Hx Chronic Obstructive Pulmonary Disease (COPD), Hx Sleep Apnea GI History: Reports: Hx Gastroesophageal Reflux Disease History: Reports: Other Problems/Disorders - borderline PSA- being monitorted Denies: Hx Renal Disease Sensory History: Reports: Hx Cataracts - left, Hx Contacts or Glasses - glasses Denies: Hx Hearing Aid Opthamlomology History: Reports: Hx Cataracts - left, Hx Contacts or Glasses - glasses Neurological History: Reports: Hx Migraine Psychiatric History: Reports: Hx Anxiety - Cancer History Cancer Type, Location and Year: PROSTATE Hx Chemotherapy: No - Surgical History Surgery Procedure, Year, and Place: radical retina reattachment 10/22/2017 Hx Anesthesia Reactions: Yes - when extubated, choked for 5 minutes, has sleep apnea - Immunization History Date of Influenza Vaccine: 08/15/2019 Immunizations Up to Date: Yes Infectious Disease History: No Infectious Disease History: Denies: Traveled Outside the [place] in Last 30 Days - Family History Known Family History: Positive: Other - Social History Alcohol Use: Occasionally Alcohol Amount: Socially Substance Use Type: Reports: None Smoking Status (MU): Never Smoked Tobacco Review of Systems Constitutional: Negative Eyes: Negative Negative: Blurred Vision, Diplopia ENT: Negative Cardiovascular: Negative Respiratory: Negative Gastrointestinal: Negative Genitourinary: Negative Musculoskeletal: Negative Skin: Negative Positive: Headache Psychological: Normal All Other Systems Reviewed And Are Negative: Yes Physical Exam Triage Information Reviewed: Yes Vital Signs On Initial Exam: Initial Vitals Temp Pulse Resp BP Pulse Ox 98.0 F 65 16 165/99 98 08/20/19 15:45 08/20/19 15:45 08/20/19 15:45 08/20/19 15:45 08/20/19 15:45 Vital Signs Reviewed: Yes Appearance: Positive: Well-Appearing, No Pain Distress, Well-Nourished Skin: Positive: Warm, Skin Color Reflects Adequate Perfusion Eyes: Positive: EOMI, BERNABE, Conjunctiva Clear ENT: Positive: Hearing grossly normal Neck: Positive: Nontender. Negative: Nuchal Rigidity Respiratory/Lung Sounds: Positive: Clear to Auscultation, Breath Sounds Present Cardiovascular: Positive: RRR, S1, S2 Abdomen Description: Positive: Nontender, Soft Bowel Sounds: Positive: Present Musculoskeletal: Positive: Strength/ROM Intact Neurological: Positive: Sensory/Motor Intact, Alert, Oriented to Person Place, Time, Normal Gait, Speech Normal. Negative: Slurred Speech Psychiatric: Positive: Normal AVPU Assessment: Alert Procedures - Sedation Patient Received Moderate/Deep Sedation with Procedure: No Diagnostics - Vital Signs Vital Signs Temp Pulse Resp BP Pulse Ox 08/20/19 16:34 97.9 F 67 14 170/103 96 08/20/19 15:45 98.0 F 65 16 165/99 98 - Laboratory Lab Results: Lab Results 08/20/19 08/20/19 Range/Units 17:07 17:07 WBC 12.8 H (3.5-10.8) 10^3/uL RBC 5.04 (4.18-5.48) 10^6 /uL Hgb 15.9 (14.0-18.0) g/dL Hct 46 (42-52) % MCV 90 (80-94) fL MCH 31 (27-31) pg MCHC 35 (31-36) g/dL RDW 14 (10-15) % Plt Count 234 (150-450) 10^3/uL MPV 8.0 (7.4-10.4) fL Neut % (Auto) 63.2 % Lymph % (Auto) 28.2 % [place] % (Auto) 7.2 % Eos % (Auto) 1.1 % Baso % (Auto) 0.3 % Absolute Neuts (auto) 8.1 H (1.5-7.7) 10^3/ul Absolute Lymphs (auto) 3.6 (1.0-4.8) 10^3/ul Absolute Monos (auto) 0.9 H (0-0.8) 10^3/ul Absolute Eos (auto) 0.1 (0-0.6) 10^3/ul Absolute Basos (auto) 0.0 (0-0.2) 10^3/ul Absolute Nucleated RBC 0.0 10^3/ul Nucleated RBC % 0.1 Lactic Acid 1.3 (0.5-2.0) mmol/L Result Diagrams: 08/20/19 17:07 08/20/19 17:07 Lab Statement: Any lab studies that have been ordered have been reviewed, and results considered in the medical decision making process. Re-Evaluation - Re-Evaluation First Eval Re-Evaluation Time: 19:35 - patient feels significantly better after being given Benadryl, Reglan, magnesium for his headache as well as some blood pressure medications. Change: Improved Headache Course/Dx - Course Course Of Treatment: Patient was evaluated in the emergency department today for elevated blood pressure and headache. Patient was seen and examined his blood pressure is 170/100 mmHg he is afebrile. He is no acute distress. EKG was done which showed normal sinus rhythm at a rate of 63 bpm. Normal axis, MS , QTc interval. No ST elevation or signs of ischemia. A CT without contrast was done of his brain to investigate possible intracranial pathology which resulted as negative for intercranial bleed or other pathological processes. Blood work was within normal limits and showed no evidence of end organ damage. He was given IV magnesium, normal saline, Reglan, Benadryl for his headache as well as oral antihypertensives for his blood pressure. Approximately 1 hour after being given these medications he endorses headache subsided significantly and his blood pressure normalized to 138/74 mmHg. he was told to continue taking his home antihypertensive medication as directed and to take Benadryl and ibuprofen as needed for his migraine. He was told to follow-up with his primary care provider for further blood pressure management and return to the emergency department immediately if he developed any new or worsening symptoms. - Diagnoses Differential Diagnosis/HQI/PQRI: Migraine, Temporal Arteritis, Tension Headache , Viral Syndrome, Other - Subarachnoid hemorrhage, intracranial mass, elevated blood pressure, headache due to hypertension, hypertensive urgency, hypertensive urgency. Provider Diagnoses: Headache, Elevated blood pressure reading Discharge ED - Sign-Out/Discharge Documenting (check all that apply): Patient Departure - Discharge Plan Condition: Stable Disposition: HOME Patient Education Materials: Migraine Headache (ED) Referrals: Grabiel Conroy MD [Primary Care Provider] - 2 Days Additional Instructions: You were seen in the emergency department today due to your high blood pressure and headache. Please continue to take your home blood pressure medication as prescribed for treatment of your hypertension and follow-up with your primary care physician as needed for proper medication management. You may take Benadryl 50 mg twice daily and ibuprofen 600 mg every 6 hours as needed for your headache. Please do not drive or operate machinery while taking Benadryl as it will make you drowsy. Return to the emergency department immediately if you develop any new or worsening symptoms. - Billing Disposition and Condition Condition: STABLE Disposition: Home - Attestation Statements Provider Attestation: pt seen by midlevel provider independently, based on their assessment, it was not necessary to present the case to me but I was available for consultation. I did not form a physician-patient relationship with the patient. The chart however, has been reviewed. am signing this note strictly in an administrative capacity.
[2019-08-20 18:27] LABS: TSH (Thyroid Stimulating Horm) 2.26 mcIU/mL (0.34-5.60)
[2019-08-20 20:32] VITALS: BP 139/87
== END 2019-08-20 20:33 | disposition home or self-care (01) ==
LOC: ED 15:39
DX: I10 Essential (primary) hypertension (principal); E78.00 Pure hypercholesterolemia, unspecified; J44.9 Chronic obstructive pulmonary disease, unspecified; K21.9 Gastro-esophageal reflux disease without esophagitis; F41.9 Anxiety disorder, unspecified; Z85.46 Personal history of malignant neoplasm of prostate; Z88.0 Allergy status to penicillin; Z88.2 Allergy status to sulfonamides
CPT/HCPCS: 36415; 70450; 80053; 83605; 83735; 84443; 84484; 85025; 93005; 96365; 96366; 96375; 99283; A9270-GY; J1200; J2765; J3475

== ENCOUNTER 2022-02-13 13:32 | Observation (INO) ==
[2022-02-13 13:51] LABS: ABS Lymphocytes 2.5 10^3/ul (1.0-4.8); ABS Monocytes 0.8 10^3/ul (0-0.8); ABS Neutrophils 9.3 10^3/ul (1.5-7.7); Eosinophil % 0.2 %; Hematocrit 45 % (42-52); Hemoglobin 15.4 g/dL (14.0-18.0); Lymphocyte % 20.1 %; Mean Corpuscular HGB Conc 35 g/dL (31-36); Mean Corpuscular Hemoglobin 31 pg (27-31); Mean Corpuscular Volume 88 fL (80-94); Mean Platelet Volume 7.9 fL (7.4-10.4); Platelet Count 227 10^3/uL (150-450); Red Blood Count 5.04 10^6 /uL (4.18-5.48); Red Cell Distribution Width 13 % (10-15); White Blood Count 12.7 10^3/uL (3.5-10.8)
[2022-02-13 13:55] LABS: INR 1.04 (0.86-1.15)
[2022-02-13 14:38] LABS: Albumin 4.7 g/dL (3.2-5.2); Albumin/Globulin Ratio 1.7 (1-3); Calcium 9.5 mg/dL (8.6-10.3); Globulin 2.8 g/dL (2-4); Magnesium 2.2 mg/dL (1.9-2.7); Potassium 3.9 mmol/L (3.5-5.0); Total Bilirubin 0.5 mg/dL (0.2-1.0); Total Protein 7.5 g/dL (6.4-8.9); eGFR CKD-EPI 94.6 (>60)
[2022-02-13 14:52] LABS: Activated Partial Thrombo Time 29.6 seconds (26.0-38.0)
[2022-02-13 15:18] LABS: High Sensitivity Troponin 1 Hr 3 pg/mL (<20)
[2022-02-13] MEDS ORDERED: Ondansetron 4 mg VIAL 2 MG/ML 2 ml VIAL IV PRN (16:08)
[2022-02-13 17:36] LABS: Urine Appearance Clear; Urine Bilirubin Negative (Negative); Urine Blood 1+ (Negative); Urine Color Yellow; Urine Glucose Negative (Negative); Urine Ketones Negative (Negative); Urine Nitrite Negative (Negative); Urine Protein Negative (Negative); Urine Specific Gravity 1.017 (1.002-1.030); Urine Urobilinogen Negative (Negative)
[2022-02-13 18:14] LABS: Urine Bacteria Absent (Absent); Urine Red Blood Cell Trace(0-2/hpf) (Absent); Urine White Blood Cell Trace(0-5/hpf) (Absent)
[2022-02-13] MEDS ORDERED: RIZATRIPTAN 10 MG PO PRN (19:23)
[2022-02-13] MEDS: Enoxaparin 40 MG/0.4 ML SYR SUBCUT SCH (21:12)
[2022-02-13] MEDS: Chlorhexidine MOUTHWASH 0.12% 15 ML UDC SWISH SPIT SCH (22:12)
[2022-02-14 06:15] LABS: ABS Eosinophils 0.1 10^3/ul (0-0.6); ABS Lymphocytes 2.7 10^3/ul (1.0-4.8); ABS Monocytes 0.8 10^3/ul (0-0.8); ABS Neutrophils 6.4 10^3/ul (1.5-7.7); Hematocrit 45 % (42-52); Hemoglobin 15.7 g/dL (14.0-18.0); Lymphocyte % 27.4 %; Mean Corpuscular HGB Conc 35 g/dL (31-36); Mean Corpuscular Hemoglobin 31 pg (27-31); Mean Corpuscular Volume 89 fL (80-94); Mean Platelet Volume 7.8 fL (7.4-10.4); Platelet Count 205 10^3/uL (150-450); Red Blood Count 5.07 10^6 /uL (4.18-5.48); Red Cell Distribution Width 13 % (10-15)
[2022-02-14 07:10] LABS: Calcium 9.2 mg/dL (8.6-10.3); Magnesium 2.1 mg/dL (1.9-2.7); Potassium 4.2 mmol/L (3.5-5.0); eGFR CKD-EPI 93.4 (>60)
[2022-02-14] MEDS: SPIRIVA Respimat (tiotropium) 2.5 mcg/inh Inhaler INH SCH (08:37)
[2022-02-14] MEDS: Chlorhexidine MOUTHWASH 0.12% 15 ML UDC SWISH SPIT SCH ×2 (08:42→21:07)
[2022-02-14] MEDS: [UNRECOGNIZED DRUG - OTHER] PO SCH (08:43)
[2022-02-14] MEDS: Pravastatin 20 mg TAB (NF) PO SCH (11:54)
[2022-02-14] MEDS: Multivitamins/Minerals TAB PO SCH (11:54)
[2022-02-14] MEDS: NISOLDIPINE 17 MG PO SCH (13:07)
[2022-02-14] MEDS ORDERED: Iohexol 350 (CONTRAST) 500 ML MDV IV ONE (13:17)
[2022-02-14] MEDS: Enoxaparin 40 MG/0.4 ML SYR SUBCUT SCH (16:15)
[2022-02-15 05:28] LABS: ABS Eosinophils 0.1 10^3/ul (0-0.6); ABS Lymphocytes 2.5 10^3/ul (1.0-4.8); ABS Monocytes 0.8 10^3/ul (0-0.8); ABS Neutrophils 7.7 10^3/ul (1.5-7.7); Eosinophil % 1.1 %; Hematocrit 43 % (42-52); Hemoglobin 14.8 g/dL (14.0-18.0); Lymphocyte % 22.6 %; Mean Corpuscular HGB Conc 35 g/dL (31-36); Mean Corpuscular Hemoglobin 31 pg (27-31); Mean Corpuscular Volume 89 fL (80-94); Mean Platelet Volume 7.9 fL (7.4-10.4); Nucleated Red Blood Cells % 0.1; Platelet Count 198 10^3/uL (150-450); Red Blood Count 4.81 10^6 /uL (4.18-5.48); Red Cell Distribution Width 13 % (10-15); White Blood Count 11.3 10^3/uL (3.5-10.8)
[2022-02-15 05:43] LABS: HDL Cholesterol 50.7 mg/dL; Magnesium 2.2 mg/dL (1.9-2.7); eGFR CKD-EPI 85.7 (>60)
[2022-02-15] MEDS: [UNRECOGNIZED DRUG - OTHER] PO SCH (07:45)
[2022-02-15] MEDS: Chlorhexidine MOUTHWASH 0.12% 15 ML UDC SWISH SPIT SCH (07:45)
[2022-02-15 07:46] VITALS: BP 134/84
[2022-02-15] MEDS: Multivitamins/Minerals TAB PO SCH (07:57)
[2022-02-15] MEDS: Pravastatin 20 mg TAB (NF) PO SCH (07:57)
[2022-02-15] MEDS: NISOLDIPINE 17 MG PO SCH (07:57)
[2022-02-15] MEDS: SPIRIVA Respimat (tiotropium) 2.5 mcg/inh Inhaler INH SCH (08:01)
== END 2022-02-15 13:53 | disposition home or self-care (01) ==
LOC: ED 13:32 → EDHOLD 13:32 → MEDTELE 19:58
PROVIDERS: ADMIT Internal Medicine; ATTEND Internal Medicine